=== PATIENT | female | born 1960 | race Caucasian/White ===

== ENCOUNTER → 2018-11-07 | Outpatient (CLI) | payer OTHER ==
[~2018-11-07] MED LIST: AMLO10 PO; ASPI81CH PO; ATOR80 PO; AZIT500 PO; Aspirin EC81 MG PO; CARV25 PO; CLOP75 PO; CYCL10 PO; Coreg12.5 MG PO; FURO20 PO; HYDCHL25 PO; ISOD40ER PO; ISOMON60ER PO; LISI20 PO; POTCHL10ER PO; PRED20 PO; QUIN10 PO; RANO500T PO; SPIR25 PO; Ventolin/Prove6.7 GM INH; Zithromax250 MG PO
[2018-11-07 10:38] LABS: Creatinine Urine 41.9 mg/dL (27.00-270.00); Protein, Urine Quantitative 8.1 mg/dL (0.0-11.9)
[2018-11-07 10:40] LABS: Microalbumin, Urine Quant. 6.48 mg/L (0.000-20.000)
== END | disposition home or self-care (01) ==
LOC: LAB SHORT 09:36 → LAB 09:36 → LAB FUT 11-04 13:55
PROVIDERS: Internal Medicine Nephrology
DX: N18.3 Chronic kidney disease, stage 3 (moderate) (principal); D63.1 Anemia in chronic kidney disease; N25.81 Secondary hyperparathyroidism of renal origin; E55.9 Vitamin D deficiency, unspecified; E78.00 Pure hypercholesterolemia, unspecified; D51.9 Vitamin B12 deficiency anemia, unspecified; D52.8 Other folate deficiency anemias; D50.9 Iron deficiency anemia, unspecified; R76.9 Abnormal immunological finding in serum, unspecified; R73.09 Other abnormal glucose; R94.6 Abnormal results of thyroid function studies; R94.5 Abnormal results of liver function studies
CPT/HCPCS: 81050; 82043; 82570; 84156

== ENCOUNTER → 2019-01-17 | Outpatient (CLI) | payer OTHER ==
[2019-01-17 14:17] LABS: Creatinine Urine 32.3 mg/dL (27.00-270.00)
== END | disposition home or self-care (01) ==
LOC: LAB 11:20 → LAB SHORT 11:20 → LAB FUT 01-12 09:20
PROVIDERS: Internal Medicine Nephrology
DX: N18.3 Chronic kidney disease, stage 3 (moderate) (principal); D63.1 Anemia in chronic kidney disease; N25.81 Secondary hyperparathyroidism of renal origin; E55.9 Vitamin D deficiency, unspecified; E78.00 Pure hypercholesterolemia, unspecified; R76.9 Abnormal immunological finding in serum, unspecified; R94.5 Abnormal results of liver function studies; R94.6 Abnormal results of thyroid function studies
CPT/HCPCS: 81050; 82530; 82570

== ENCOUNTER → 2020-07-30 | Outpatient (CLI) | payer OTHER | END | disposition home or self-care (01) | LOC: LAB 13:34 → LAB SHORT 13:34 | DX: K30 Functional dyspepsia (principal) | CPT/HCPCS: 87338 ==

== ENCOUNTER 2021-06-16 12:05 | Inpatient (IN) | payer OTHER ==
[~2021-06-16] VITALS: Ht 152.4 cm; Wt 93.5 kg
[~2021-06-16 12:05] MED LIST changes: -Coreg12.5 MG PO
[2021-06-16 13:00] LABS: Alanine Aminotransfer (ALT/SGP 30 U/L (12-78); Albumin, Blood 3.7 g/dL (3.4-5.0); Alk Phos 119 U/L (50-136); Anion Gap 7 mmol/L (6-16); Aspartate Aminotrans (AST/SGOT 22 U/L (12-37); Bilirubin, Total 0.4 mg/dL (0.1-1.0); Blood Urea Nitrogen 21 mg/dL (8-24); Bun/Creatinine Ratio 22.8 (12.0-20.0); CO2, Blood 30 mmol/L (21-32); Calcium, Blood 10.1 mg/dL (8.5-10.1); Chloride, Blood 97 mmol/L (98-108); Creatinine, Blood 0.92 mg/dL (0.40-1.00); Globulin, Blood 3.8 g/dL (2.2-4.0); Glomerular Filtration Rate >60 (60-); Glucose, Blood 152 mg/dL (70-99); Potassium, Blood 4.9 mmol/L (3.5-5.5); Sodium, Blood 134 mmol/L (136-145); Total Protein, Blood 7.5 g/dL (6.4-8.2); Troponin I <0.015 ng/mL (0.000-0.040)
[2021-06-16 13:01] LABS: BASOPHILS ABSOLUTE AUTO 0.03 K/mm3 (0.00-0.23); BASOPHILS PERCENT AUTO 0 % (0-2); EOSINOPHILS PERCENT AUTO 0 % (0-6); Hematocrit 40.8 % (33.0-51.0); Hemoglobin 13.5 g/dL (11.5-16.0); IMMATURE GRAN ABSOLUTE AUTO 0.02 K/mm3 (0.00-0.10); IMMATURE GRAN PERCENT AUTO 0 % (0-1); LYMPHOCYTES ABSOLUTE AUTO 1.04 K/mm3 (0.84-5.20); LYMPHOCYTES PERCENT AUTO 13 % (21-46); MONOCYTES ABSOLUTE AUTO 0.18 K/mm3 (0.16-1.47); MONOCYTES PERCENT AUTO 2 % (4-13); Mean Corpuscular HGB 32.8 pg (26.0-34.0); Mean Corpuscular HGB Conc 33.1 g/dL (31.5-36.5); Mean Corpuscular Volume 99 fL (80-100); Mean Platelet Volume 9.5 fL (9.1-12.4); NEUTROPHILS ABSOLUTE AUTO 6.69 K/mm3 (1.96-9.15); NEUTROPHILS PERCENT AUTO 84 % (41-73); Platelet Count 295 K/mm3 (150-400); RDW Coefficient Variation 13.2 % (11.7-14.2); RDW Standard Deviation 47.1 fL (35.1-46.3); Red Blood Cell Count 4.11 M/mm3 (3.80-5.20); White Blood Cell Count 7.96 K/mm3 (4.00-11.30)
[2021-06-16 13:59] LABS: Influenza A, PCR NEGATIVE (NEGATIVE); Influenza B, PCR NEGATIVE (NEGATIVE); Resp Syncytial Virus, PCR NEGATIVE (NEGATIVE); SARS-Cov-2 (COVID-19) PCR, MMC NEGATIVE (NEGATIVE)
[2021-06-16 16:09] LABS: Base Excess Venous 8.9 mmol/L; PCO2 Venous 55.4 mmHg (38-42); PO2 Venous 141 mmHg (38-42); pH Blood Venous 7.39 (7.34-7.37)
[2021-06-16] MEDS ORDERED: XARELTO20 MG PO (17:17)
[2021-06-16] MEDS ORDERED: MAGNESIUM OXID500 MG PO (17:18)
[2021-06-16] MEDS ORDERED: CALC.25 PO (17:19)
[2021-06-16] MEDS ORDERED: VITAMIN D325 MC3 PO (17:19)
[2021-06-16] MEDS ORDERED: GABA400 PO (17:22)
[2021-06-16] MEDS ORDERED: EZET10 PO (17:22)
--- NOTE | 2021-06-16 19:32 | NUR ---
ADMIT NOTE PT TO ROOM VIA BED, 4 PERSON ASSIST WITH SLIDER SHEET. PT ORIENTED TO ROOM AND CALL LIGHT. EDUCATED ON FALL RISK AND SAFE TRASNFERING. PT A&Ox4; COOPERTIAVE WITH CARE. PT ON 10L OXYMIZER, SPO2 >90%; BIPAP AT BEDSIDE 12/6 40% ON STANDBY. EXP WHEEZES NOTED T/O. PT REPORTS CRAMPING TO RIGHT FOOT ARCH; ASSIST WITH STRETCHING, STATES WATER HELPS, PT PROVIDED WATER. PT REPORTS CHEST PRESSURE, STATES 5/10 IMPROVING. PT DENIES NASUEA OR DIZZINESS AT THIS TIME. PT RECEIVING IV LASIX. VSS. NO OTHER ACUTE CHANGES NOTED DURING SHIFT. REPORT GIVEN TO ONCOMING RN.
[2021-06-17 00:55] LABS: BASOPHILS ABSOLUTE AUTO 0.06 K/mm3 (0.00-0.23); BASOPHILS PERCENT AUTO 1 % (0-2); EOSINOPHILS ABSOLUTE AUTO 0.04 K/mm3 (0.00-0.68); EOSINOPHILS PERCENT AUTO 1 % (0-6); Hematocrit 40.2 % (33.0-51.0); Hemoglobin 13.4 g/dL (11.5-16.0); IMMATURE GRAN ABSOLUTE AUTO 0.04 K/mm3 (0.00-0.10); IMMATURE GRAN PERCENT AUTO 1 % (0-1); LYMPHOCYTES ABSOLUTE AUTO 2.17 K/mm3 (0.84-5.20); LYMPHOCYTES PERCENT AUTO 24 % (21-46); MONOCYTES ABSOLUTE AUTO 0.74 K/mm3 (0.16-1.47); MONOCYTES PERCENT AUTO 8 % (4-13); Mean Corpuscular HGB 32.5 pg (26.0-34.0); Mean Corpuscular HGB Conc 33.3 g/dL (31.5-36.5); Mean Corpuscular Volume 98 fL (80-100); Mean Platelet Volume 9.3 fL (9.1-12.4); NEUTROPHILS ABSOLUTE AUTO 5.83 K/mm3 (1.96-9.15); NEUTROPHILS PERCENT AUTO 66 % (41-73); Platelet Count 278 K/mm3 (150-400); RDW Coefficient Variation 13.2 % (11.7-14.2); RDW Standard Deviation 46.6 fL (35.1-46.3); Red Blood Cell Count 4.12 M/mm3 (3.80-5.20); White Blood Cell Count 8.88 K/mm3 (4.00-11.30)
[2021-06-17 01:40] LABS: Bun/Creatinine Ratio 18.2 (12.0-20.0); Calcium, Blood 10.2 mg/dL (8.5-10.1); Creatinine, Blood 1.1 mg/dL (0.40-1.00); Potassium, Blood 3.9 mmol/L (3.5-5.5)
--- NOTE | 2021-06-17 06:08 | NUR ---
SHIFT SUMMARY AOX4. VSS. TELE NSR c PVC @90. REPORTED SOLIMAN THIS AM, GAVE TYLENOL PER EMAR & PT STATED RELIEF. SOB c MINIMAL EXERTION IN BED. SPO2 >90% ON 6L OXIMIZER, PT DOES DESAT WHEN O2 REMOVED TO MID 80'S. LS DIM c EXP WHEEZES. PT WORE BIPAP T/O NIGHT. OCC PRODUCTIVE COUGH c SMALL AMOUNT LIGHT GREEN/CLEAR SPUTUM. TROPONIN @0030 SLIGHTLY ELEVATED 0.148, INFORMED DR PAVON & HE ORDERED REPEAT TROP DRAW @0830. INCONT OF URINE, NO WOUNDS OR REDNESS NOTED. CALL LIGHT IN REACH. WCTM UNTIL DAY NURSE ASSUMES CARE.
[2021-06-17] MEDS ORDERED: ASPI81CH PO (08:17)
[2021-06-17] MEDS ORDERED: ATORVASTATIN CA80 M1 PO (08:18)
[2021-06-17] MEDS ORDERED: CLOP75 PO (08:19)
[2021-06-17] MEDS ORDERED: Iprat-Albut 0.5-3(2. INH (08:21)
[2021-06-17] MEDS ORDERED: ISOSORBIDE MONO60 MG PO (08:22)
[2021-06-17] MEDS ORDERED: KLOR-CON 1010 ME1 PO (08:23)
[2021-06-17] MEDS ORDERED: RANEXA1000 M4 PO (08:24)
[2021-06-17 09:28] LABS: Bicarbonate Venous 35.3 mmol/L (24.0-30.0); PCO2 Venous 56.2 mmHg (38-42); pH Blood Venous 7.44 (7.34-7.37)
[2021-06-17] MEDS ORDERED: ANORO ELLIPTA1 EACH INH (12:07)
--- NOTE | 2021-06-17 18:15 | NUR ---
SHIFT SUMMARY PT A&Ox4; CALM AND COOPERATIVE WITH CARE. PT UP IN CHAIR FOR MAJORITY OF THE DAY. PT SOB WITH EXERTION, SPO2 >88% FOR MAJOROITY OF SHIFT, TITRATED FROM 6L O2 VIA OXYMIZER TO 1L O2 VIA NC; ATTMEPTED TO TITRATED TO RA SPO2 86-88%. PT RECIEVING IV LASIX AND STARTED ON IV STEROIDS. PT DENIES PAIN, CHEST PAIN, NASUEA AND DIZZINESS. VSS. NO OTHER ACUTE CHANGES NOTED DUIRNG SHIFT. WILL CONITNUE TO MONITOR UNITL REPORT GIVEN TO ONCOMING RN.
--- NOTE | 2021-06-18 05:33 | NUR ---
SHIFT SUMMARY NO ACUTE CHANGES THIS SHIFT. PT AOX3. SP02>92% ON 1L NC. PT WORE CPAP W/ 2L BLEED IN WHILE SLEEPING. TELEMETRY READS NSR W/ PVC'S AND BBB. HR 70'S. PT UP IN CHAIR AT BEGINNING OF SHIFT WATCHING TV BEFORE TRANSFERRING TO BED. PT UP TO BSC W/ MINIMAL HELP TO VOID. NO BM THIS SHIFT. PT DENIED PAIN. SLEPT MOST OF NIGHT. CALL LIGHT IN REACH. WILL GIVE REPORT TO ONCOMING NURSE.
[2021-06-18 07:55] LABS: Bun/Creatinine Ratio 31.8 (12.0-20.0); Creatinine, Blood 0.98 mg/dL (0.40-1.00); Potassium, Blood 4.1 mmol/L (3.5-5.5)
[2021-06-18] MEDS ORDERED: XARELTO20 MG PO (13:22)
[2021-06-18] MEDS ORDERED: FURO20 PO (13:31)
[2021-06-18] MEDS ORDERED: AZIT250 PO (13:31)
[2021-06-18] MEDS ORDERED: Prednisone10 MG PO (13:32)
[2021-06-18] MEDS ORDERED: Nicoderm Cq1 EAC1 TOP (13:33)
[2021-06-18] MEDS ORDERED: Lisinopril10 MG PO (14:07)
--- NOTE | 2021-06-18 15:27 | NUR ---
WITH AMBULATION/ACTIVITY SPO2 DESATRUATES TO 80'S; PLACED 3L O2 VIA NC SPO2 >90%. WILL CONTINUE TO MONITOR.
--- NOTE | 2021-06-18 17:08 | NUR ---
DISCHARGE SUMMARY PT A&Ox4; CALM AND COOPERATIVE WITH CARE. PT UP IN CHAIR DURING SHIFT. PT DENIES PAIN, CHEST PAIN, NASUEA AND DIZZINESS. PT REPORTS "A LITTLE" SOB WITH EXERTION. PT TITRATED TO RA AT REST, DESATURATES TO 80'S ON RA WHILE AMBULATION, PLACED 3L O2 VIA NC WITH ACTIVITY PT SPO2 >90. PT RECEIVING IV LASIX AND STEROIDS. PT RECEIVING PO ANTIBIOTICS. OTHER VSS. NO OTHER ACUTE CHAGNES NOTED. PT EDUCATED ON DISCHARGE INSTRUCTIONS, FOLLOW APPOINTMENT, MEDICATION AND OXYGEN USE AT HOME. OXYGEN DELIVERED TWO E TANKS TO GET PATIENT THROUGH THE NIGHT AND PLANS TO DELIVER THE REST OF THE SUPPLIES AND EDCUATED PT IN THE AM. EDCUATED PT ON S/SX OF CHF AND HAND OUT PROVIDED FOR DAILY CHECKIN. PT LEFT ROOM VIA WHEELCHAIR AT 1659.
== END 2021-06-18 17:00 | disposition home or self-care (01) | DRG 291 ==
LOC: ER 12:05 → PCU 15:30
PROVIDERS: Emergency Medicine; Family Medicine; Physician Assistant; ADMIT Family Medicine
PROC: 5A09357 Assistance with Respiratory Ventilation, Less than 24 Consecutive Hours, Continuous Positive Airway Pressure (ICD-10-PCS; principal; 2021-06-16)
PROC: 3E02340 Introduction of Influenza Vaccine into Muscle, Percutaneous Approach (ICD-10-PCS; 2021-06-16)
DX: I11.0 Hypertensive heart disease with heart failure (principal); J96.21 Acute and chronic respiratory failure with hypoxia; I50.23 Acute on chronic systolic (congestive) heart failure; J96.22 Acute and chronic respiratory failure with hypercapnia; J44.1 Chronic obstructive pulmonary disease with (acute) exacerbation; I51.0 Cardiac septal defect, acquired; Z20.822 Contact with and (suspected) exposure to COVID-19; E78.5 Hyperlipidemia, unspecified; I48.0 Paroxysmal atrial fibrillation; I35.0 Nonrheumatic aortic (valve) stenosis; Z95.1 Presence of aortocoronary bypass graft; F17.210 Nicotine dependence, cigarettes, uncomplicated; G47.30 Sleep apnea, unspecified; Z98.890 Other specified postprocedural states; Z95.5 Presence of coronary angioplasty implant and graft; Z85.828 Personal history of other malignant neoplasm of skin; I44.7 Left bundle-branch block, unspecified; R79.89 Other specified abnormal findings of blood chemistry; Z79.82 Long term (current) use of aspirin; Z79.899 Other long term (current) drug therapy; Z23 Encounter for immunization
CPT/HCPCS: 0241U; 36415; 71045; 80048; 80053; 82803; 82947; 83880; 84145; 84484; 85025; 90686; 93005; 93010; 94640; 94660; 94664; 94760; 94761; 94762; 96374; 97116; 97162; 97166; 97530; 97535; 99285-25; A9270; J0456; J1940; J2930; J7050